=== PATIENT | male | born 1960 | race Two or more races ===

== ENCOUNTER 2020-11-13 13:03 | Emergency (ER) | payer MEDICAID, OTHER ==
[~2020-11-13] VITALS: Ht 160 cm; Wt 83.5 kg
[2020-11-13 13:29] VITALS: BP 126/78
== END 2020-11-13 16:18 | disposition left against medical advice (07) ==
LOC: ER 13:03
DX: L02.01 Cutaneous abscess of face (principal); Z53.21 Procedure and treatment not carried out due to patient leaving prior to being seen by health care provider